=== PATIENT | female | born 1955 | race Caucasian/White ===

== ENCOUNTER 2019-08-23 14:16 | Inpatient (IN) ==
[2019-08-23 14:41] LABS: Hematocrit 38.7 % (37.0-47.0); Hemoglobin 13.1 gm/dL (12.5-16.0); Mean Cell Volume 92.6 fl (78-100); Mean Corpuscular Hemoglobin 31.3 pg (27-31); Mean Corpuscular Hgb Conc 33.9 g/dl (32-36); Mean Platelet Volume 9.2 fl (8-12.5); Neutrophil # 3.3 K/mm3 (1.3-6.0); Neutrophil % 63.9 % (42-75.0); Platelet Count 211 K/mm3 (150-450); Red Blood Count 4.18 M/mm3 (4.2-5.4); White Blood Count 5.2 K/mm3 (4.0-10.5)
[2019-08-23 14:51] LABS: INR 1.07 INR (0.92-1.08); Partial Thrombolplastin Time 25.2 Seconds (24-32); Prothrombin Time (Patient) 10.6 Seconds (9.1-10.7)
[2019-08-23 15:00] LABS: ALT 26 U/L (19-67); AST 60 U/L (0-48); Albumin * 3.3 gm/dl (3.4-5.0); Alkaline Phosphatase * 132 U/L (50-170); Anion Gap 12.5 mmol/L (6.8-13.8); Bilirubin, Total 0.6 mg/dL (0.0-1.1); Blood Urea Nitrogen 24 mg/dL (3-23); Ca. Corrected For Albumin 8.8 mg/dL (8.4-10.2); Calcium * 8.6 mg/dL (7.9-10.9); Carbon Dioxide 26.3 mmol/L (24-32.6); Chloride 108 mmol/L (97-106); Glucose * 93 mg/dL (70-110); Potassium 3.8 mmol/L (3.4-4.6); Sodium 143 mmol/L (132-142); Total Protein 7.5 gm/dL (6.2-8.2); Troponin I Less than 0.017 ng/mL (0.00-0.10)
[2019-08-23] MEDS ORDERED: KETOROLAC TROMETHAMINE 30 MG/ML VIAL IV ONE (15:00)
[2019-08-23] MEDS ORDERED: LIDOCAINE HCL 20 ML UDC PO ONE (15:01)
[2019-08-23] MEDS ORDERED: MAG HYDROX/ALUMINUM HYD/SIMETH 30 ML UDC PO ONE (15:01)
[2019-08-23] MEDS ORDERED: PANTOPRAZOLE SODIUM 40 MG/100 ML PIGGYBACK IV ONE (15:01)
[2019-08-23] MEDS ORDERED: SUCRALFATE 1 G/10 ML UDC PO ONE (15:01)
[2019-08-23 15:02] LABS: Urine Appearance Slightly Cloudy (CLEAR); Urine Color Yellow
[2019-08-23 15:06] LABS: Urine Bilirubin Negative (NEGATIVE)
[2019-08-23 15:07] LABS: Urine Blood Negative /ul (NEGATIVE); Urine Ketone Negative (NEGATIVE); Urine Protein Negative (NEGATIVE); Urine Urobilinogen Normal (NORMAL)
[2019-08-23 15:08] LABS: Urine Nitrite Negative (NEGATIVE)
[2019-08-23 15:10] LABS: Urine Bacteria 4+; Urine RBC None Seen /hpf (0-5)
[2019-08-23 15:28] LABS: Amylase * 731 U/L (25-115)
[2019-08-23 15:44] LABS: Lipase 18948 U/L (73-393)
[2019-08-23] MEDS ORDERED: DIATRIZOATE MEGLUMINE, SODIUM 30 ML BTL PO ONE (17:25)
--- NOTE | 2019-08-23 18:12 | ERNOTE ---
Chest Pain/Cardiac HPI Date of Service: 08/23/19 Chief Complaint: Chest Pain Time Seen by Provider: 08/23/19 19:51 Source: patient, family Exam Limitations: no limitations Immunizations: IMMUNIZATION HX Immunizations Up to Date Yes History of Influenza Vaccine Yes Hx Pneumococcal Vaccination Yes Allergies/Adverse Reactions: Allergies No Known Allergies Allergy (Verified 08/23/19 14:30) Home Medications: HOME MEDICATIONS Calcium Carbonate/Vitamin D3 [Calcium 500-Vit D3 200 Tablet] 4 ea PO DAILY MDD DOSE IS 500MG-125 UNIT TAB 11/22/17 [Last Taken Unknown] Cyanocobalamin (Vitamin B-12) [Vitamin B-12] 1,000 mcg PO DAILY 11/22/17 [Last Taken Unknown] Ferrous Sulfate [Iron] 325 mg PO DAILY 11/22/17 [Last Taken Unknown] Latanoprost [Xalatan] 1 drp EACHEYE HS 11/22/17 [Last Taken Unknown] Midodrine HCl 10 mg PO TID 11/22/17 [Last Taken Unknown] Multivitamins [Multivitamin Gloria] 2 cap PO DAILY 11/22/17 [Last Taken Unknown] chlorpheniramine maleate 4 mg tablet 4 mg PO Q6H PRN 02/21/18 [Last Taken Unknown] albuterol sulfate 90 mcg/actuation aerosol inhaler 2 puff IH Q6H PRN #18 g 10/07/18 [Last Taken Unknown] folic acid 1 mg tablet 1 mg PO DAILY tab 10/07/18 [Last Taken Unknown] methotrexate sodium (PF) 25 mg/mL injection solution 20 mg IM QWEEK #2 ml 01/23/19 [Last Taken Unknown] hydroxychloroquine 200 mg tablet 200 mg PO BID tab 05/20/19 [Last Taken Unknown] alendronate 70 mg tablet 70 mg PO QWEEK #13 tab 07/13/19 [Last Taken Unknown] omeprazole 40 mg capsule,delayed release 40 mg PO DAILY #30 cap 07/13/19 [Last Taken Unknown] sertraline 50 mg tablet 75 mg PO DAILY #45 tab 08/10/19 [Last Taken Unknown] Narrative: patient c/oepigastric pain with radiation into back for several days Timing: constant Severity/Quality: moderate, pressure, sharp Location: substernal, epigastric Chest Pain Radiation: back Activities at Onset: none Modifying Factors - Improves: Present: nothing Modifying Factors - Worsens: Present: nothing Nitro Today/Relief: no nitro taken today Aspirin Treatment Today: no aspirin today Associated Symptoms: Present: denies symptoms Prior Chest Pain/Cardiac Workup: Reports: no prior cardiac workup Prior Treatment: Reports: recently seen Review of Systems - Review of Systems Constitutional: Present: See HPI, weakness, fatigue, malaise EYE: Present: no symptoms reported ENT: Present: no symptoms reported Respiratory: Present: no symptoms reported Cardiology: Present: no symptoms reported Gastrointestinal/Abdominal: Present: See HPI, nausea, vomiting, abdominal pain, eating less, drinking less Genitourinary: Present: no symptoms reported Musculoskeletal: Present: no symptoms reported Skin: Present: no symptoms reported Neurological: Present: no symptoms reported Endocrine: Present: no symptoms reported Hematologic/Lymphatic: Present: no symptoms reported Psych: Present: no symptoms reported Medical History (Last Reviewed 08/23/19 @ 14:30 by Jocelin Ryan RN) Rhinitis, chronic (Acute) Onset Date: Unknown Morbid obesity (Acute) Onset Date: Unknown Glaucoma (Acute) Onset Date: Unknown GERD (gastroesophageal reflux disease) (Acute) Onset Date: Unknown Dupuytrens contracture (Acute) Onset Date: Unknown early, left middle finger, painful Diverticulosis (Acute) Onset Date: Unknown Depression (Acute) Onset Date: Unknown COPD (chronic obstructive pulmonary disease) (Acute) Onset Date: Unknown Constipation (Acute) Onset Date: ~2011 Rheumatoid arthritis (Acute) Onset Date: ~1996 Surgical History: Surgical History (Last Reviewed 08/23/19 @ 14:30 by Jocelin Ryan RN) H/O arthroscopy of right knee Onset Date: ~1996 H/O gastric bypass Onset Date: ~04/2017 History of left hip replacement Onset Date: ~2010 Normal colonoscopy Onset Date: ~2015 S/P wrist surgery Onset Date: ~2008 right Status post left foot surgery Onset Date: ~11/2017 removed arthritic nodules off bottom of foot Status post right foot surgery Onset Date: ~2004 bone spur removal Family History: Family History (Last Reviewed 08/23/19 @ 14:30 by Jocelin Ryan RN) Father Myocardial infarction Mother Pulmonary embolism Social History: (Last Reviewed 08/23/19 @ 14:30 by Jocelin Ryan RN) Social History: adopted: No foster care: No fci: No Marital status: / lives independently: No household members: children caregiver/support person: No current occupational status: disabled Highest education level completed: high school graduate Service: No Tobacco: Smoking Status: Former smoker Alcohol: alcohol intake: never Substance Use: substance use type: does not use Dietary Habits: caffeine: Yes caffeine comment: occasionally Type: coffee, tea Physical Exam - Physical Exam General Appearance: Present: mild distress, anxious Head Exam: Present: normal inspection, no evidence of injury Eye Exam: Normal inspection: bilateral, PERRL: bilateral, EOMI: bilateral Ears, Nose, Throat: Present: normal ENT inspection, normal pharynx Neck: Present: normal inspection, nontender Respiratory: Present: no respiratory distress, normal breath sounds, no accessory muscle use, chest nontender, lungs clear Cardiovascular/Chest: Present: regular rate, rhythm, no murmur, normal peripheral pulses Gastrointestinal/Abdominal: Present: tenderness, abnormal bowel sounds, distended Back Exam: Present: normal inspection, normal range of motion, no CVA tenderness, no vertebral tenderness Extremity Exam: Present: normal inspection, non-tender Neurological Exam: Present: alert, oriented, normal mood/affect, no motor/sensory deficits Skin Exam: Present: normal color, warm/dry Lymphatic Exam: Present: no adenopathy Progress - Date and Time Seen: Date and Time: 08/23/19 19:36 condition unchanged, to admit acute pancreatitis - Results and Orders Patient's Lab Results:: I have reviewed the patient's lab results. - Vital Signs Patient's Vital Signs:: I have reviewed the patient's vital signs. Vital Signs: Vital Signs 08/23/19 14:16 08/23/19 14:48 08/23/19 15:28 Temperature 36.9 C Pulse Rate 80 77 82 Respiratory Rate 14 19 16 Blood Pressure 158/72 H 137/65 147/73 O2 Sat by Pulse Oximetry 97 96 97 08/23/19 16:00 08/23/19 16:40 08/23/19 17:05 Temperature 37.2 C 37.0 C Pulse Rate 75 79 78 Respiratory Rate 11 L 15 Blood Pressure 150/77 H 132/65 131/68 O2 Sat by Pulse Oximetry 98 99 98 08/23/19 17:50 Temperature Pulse Rate 86 Respiratory Rate Blood Pressure 124/55 O2 Sat by Pulse Oximetry 98 - X-Ray X-Ray #1 X-Ray: abdomen Interpretation: Interp. by me - no acute process - CT/Ultrasound CT/Ultrasound Narrative: us pancreas normal ct abdomen and pelvis- acute pancreatitis - Progress/Reassessment Chief Complaint: Chest Pain Progress:: Unchanged - Transfer of Care Expected Disposition: Admit Plan - Plan Plan: to admit Departure Clinical Impression: Acute pancreatitis - Departure Disposition: Short Term Hospital Inpatient Condition: Serious Referrals: Carole Olsen FNP [Primary Care Provider] -
[2019-08-23] MEDS ORDERED: ONDANSETRON HCL 4 MG TABLET PO PRN (19:55)
[2019-08-23] MEDS: NORMAL SALINE 1,000 ML IV PRN (20:31)
[2019-08-23] MEDS ORDERED: KETOROLAC TROMETHAMINE 30 MG/ML VIAL IV PRN (22:20)
[2019-08-24] MEDS: NORMAL SALINE 1,000 ML IV PRN ×3 (04:34→21:00)
--- NOTE | 2019-08-24 08:11 | HP ---
Chief Complaint - Chief Complaint Date of Service: 08/24/19 Time of Service: 08:10 Chief Complaint: Chest pain, abdominal pain, back pain History of Present Illness: Jackelin is a 64 yo female with chest pain, abdominal pain, and back pain that began yesterday and was severe enough that she came to the [facility] ER. She had bloodwork that showed severely elevated lipase at 18,000. Abdominal CT was completed which showed acute pancreatitis. She denies alcohol. She does report eating fatty foods but not severely and not more than usual. She has a gall bladder but no abnormalities noted from CT. She has never had acute pancreatitis before. Medical History (Last Reviewed 08/23/19 @ 21:06 by Sera Mcdonald RN) Rhinitis, chronic (Acute) Onset Date: Unknown Morbid obesity (Acute) Onset Date: Unknown Glaucoma (Acute) Onset Date: Unknown GERD (gastroesophageal reflux disease) (Acute) Onset Date: Unknown Dupuytrens contracture (Acute) Onset Date: Unknown early, left middle finger, painful Diverticulosis (Acute) Onset Date: Unknown Depression (Acute) Onset Date: Unknown COPD (chronic obstructive pulmonary disease) (Acute) Onset Date: Unknown Constipation (Acute) Onset Date: ~2011 Rheumatoid arthritis (Acute) Onset Date: ~1996 Surgical History: Surgical History (Last Reviewed 08/23/19 @ 21:06 by Sera Mcdonald RN) H/O arthroscopy of right knee Onset Date: ~1996 H/O gastric bypass Onset Date: ~04/2017 History of left hip replacement Onset Date: ~2010 Normal colonoscopy Onset Date: ~2015 S/P wrist surgery Onset Date: ~2008 right Status post left foot surgery Onset Date: ~11/2017 removed arthritic nodules off bottom of foot Status post right foot surgery Onset Date: ~2004 bone spur removal Family History: Family History (Last Reviewed 08/23/19 @ 21:06 by Sera Mcdonald RN) Father Myocardial infarction Mother Pulmonary embolism Brother Pancreatic cancer Social History: (Last Reviewed 08/23/19 @ 21:06 by Sera Mcdonald RN) Social History: adopted: No foster care: No halfway: No Marital status: / lives independently: No household members: children caregiver/support person: No current occupational status: disabled Highest education level completed: high school graduate Service: No Tobacco: Smoking Status: Former smoker Alcohol: alcohol intake: never Substance Use: substance use type: does not use Dietary Habits: caffeine: Yes caffeine comment: occasionally Type: coffee, tea Review Of Systems (GEN) - Review of Systems Generalized/Overall Review: Absent: Weakness, Chills, Fever EENTM: Present: No Symptoms Reported Respiratory: Present: No Symptoms Reported Cardiac: Present: Chest Pain. Absent: Edema, Palpitations Abdominal: Present: Nausea, Abdominal Pain. Absent: Vomiting Genitourinary: Present: No Symptoms Reported Musculoskeletal: Present: Joint Pain, Back Pain Neurological: Present: No Symptoms Reported Skin: Present: No Symptoms Reported Immunizations: IMMUNIZATION HX Immunizations Up to Date Yes History of Influenza Vaccine Yes Hx Pneumococcal Vaccination Yes Allergies/Adverse Reactions: Allergies Allergy/AdvReac Type Severity Reaction Status Date / Time No Known Allergies Allergy Verified 08/23/19 14:30 Home Medications: HOME MEDICATIONS Calcium Carbonate/Vitamin D3 [Calcium 500-Vit D3 200 Tablet] 4 ea PO DAILY MDD DOSE IS 500MG-125 UNIT TAB 11/22/17 [Last Taken Unknown] Cyanocobalamin (Vitamin B-12) [Vitamin B-12] 1,000 mcg PO DAILY 11/22/17 [Last Taken Unknown] Ferrous Sulfate [Iron] 325 mg PO DAILY 11/22/17 [Last Taken Unknown] Latanoprost [Xalatan] 1 drp EACHEYE HS 11/22/17 [Last Taken Unknown] Midodrine HCl 10 mg PO TID 11/22/17 [Last Taken Unknown] Multivitamins [Multivitamin Gloria] 2 cap PO DAILY 11/22/17 [Last Taken Unknown] chlorpheniramine maleate 4 mg tablet 4 mg PO Q6H PRN 02/21/18 [Last Taken Unknown] albuterol sulfate 90 mcg/actuation aerosol inhaler 2 puff IH Q6H PRN #18 g 10/07/18 [Last Taken Unknown] folic acid 1 mg tablet 1 mg PO DAILY tab 10/07/18 [Last Taken Unknown] methotrexate sodium (PF) 25 mg/mL injection solution 20 mg IM QWEEK #2 ml 01/23/19 [Last Taken Unknown] hydroxychloroquine 200 mg tablet 200 mg PO BID tab 05/20/19 [Last Taken Unknown] alendronate 70 mg tablet 70 mg PO QWEEK #13 tab 07/13/19 [Last Taken Unknown] omeprazole 40 mg capsule,delayed release 40 mg PO DAILY #30 cap 07/13/19 [Last Taken Unknown] sertraline 50 mg tablet 75 mg PO DAILY #45 tab 08/10/19 [Last Taken Unknown] Exam - Exam Vital Signs: Vital Signs - Last Taken Temp 37.0 C 08/24/19 06:49 Pulse 79 08/24/19 06:49 Resp 12 08/24/19 06:49 BP 115/59 08/24/19 06:49 Pulse Ox 97 08/24/19 06:49 Constitutional: Present: Alert, Oriented x3, Cooperative, No distress ENT Exam: Present: hearing grossly normal Eye Exam: bilateral eye: normal inspection Respiratory: Present: lungs clear, normal breath sounds Cardiovascular/Chest: Present: regular rate, rhythm, no murmur Abdomen: Present: Normal bowel sounds, soft, nondistended, no rebound tenderness, tender Skin Exam: Present: normal color, warm/dry, no cyanosis Appearance: Present: appropriate appearance, appropriate insight Eye contact: Present: cooperative, good eye contact, normal speech Thoughts: Present: normal thought pattern, no apparent hallucination Diagnostic Studies: Abnormal Lab Results 08/23/19 08/23/19 08/23/19 Range/Units 14:34 14:34 14:34 RBC 4.18 L (4.2-5.4) M/mm3 MCH 31.3 H (27-31) pg Monocytes % 11.8 H (0.0-9) % Eosinophils % 3.3 H (0.0-3.0) % Lymphocytes # 1.03 L (1.5-3.5) k/mm3 Sodium 143 H (132-142) mmol/L Plasma Sodium 143 H (130-142) mmol/L Chloride 108 H (97-106) mmol/L BUN 24 H (3-23) mg/dL BUN/Creatinine Ratio 27.0 H (9.0-21.6) AST 60 H (0-48) U/L Albumin 3.3 L (3.4-5.0) gm/dl Amylase 731 H (25-115) U/L Lipase 43223 H (73-393) U/L Ur Leukocyte Esterase (NEGATIVE) /ul Urine WBC (0-5) /hpf Calcium Oxalate Crystal (NONE) /hpf Urine Bacteria (NONE) 08/23/19 Range/Units 14:55 RBC (4.2-5.4) M/mm3 MCH (27-31) pg Monocytes % (0.0-9) % Eosinophils % (0.0-3.0) % Lymphocytes # (1.5-3.5) k/mm3 Sodium (132-142) mmol/L Plasma Sodium (130-142) mmol/L Chloride (97-106) mmol/L BUN (3-23) mg/dL BUN/Creatinine Ratio (9.0-21.6) AST (0-48) U/L Albumin (3.4-5.0) gm/dl Amylase (25-115) U/L Lipase (73-393) U/L Ur Leukocyte Esterase 25 H (NEGATIVE) /ul Urine WBC 5-10 H (0-5) /hpf Calcium Oxalate Crystal Few - 1+ H (NONE) /hpf Urine Bacteria 4+ H (NONE) Microbiology 08/23/19 14:55 Urine Culture - Preliminary Urine,Clean Catch Gram Negative Bacilli Laboratory Results WBC 5.2 K/mm3 (4.0-10.5) 08/23/19 14:34 RBC 4.18 M/mm3 (4.2-5.4) L 08/23/19 14:34 Hgb 13.1 gm/dL (12.5-16.0) 08/23/19 14:34 Hct 38.7 % (37.0-47.0) 08/23/19 14:34 MCV 92.6 fl (78-100) 08/23/19 14:34 MCH 31.3 pg (27-31) H 08/23/19 14:34 MCHC 33.9 g/dl (32-36) 08/23/19 14:34 RDW 13.0 % (11.5-14.0) 08/23/19 14:34 Plt Count 211 K/mm3 (150-450) 08/23/19 14:34 MPV 9.2 fl (8-12.5) 08/23/19 14:34 Immature Gran % (Auto) 0.20 % (0.001-0.429) 08/23/19 14:34 Immature Gran # (Auto) 0.01 K/mm3 (0.000-0.0310) 08/23/19 14:34 Neutrophils % 63.9 % (42-75.0) 08/23/19 14:34 Lymphocytes % 20.0 % (20-51) 08/23/19 14:34 Monocytes % 11.8 % (0.0-9) H 08/23/19 14:34 Eosinophils % 3.3 % (0.0-3.0) H 08/23/19 14:34 Basophils % 0.8 % (0.0-1.0) 08/23/19 14:34 Nucleated RBC % 0.0 k/mm3 (0-1) 08/23/19 14:34 Neutrophils # 3.3 K/mm3 (1.3-6.0) 08/23/19 14:34 Lymphocytes # 1.03 k/mm3 (1.5-3.5) L 08/23/19 14:34 Monocytes # 0.6 k/mm3 (0.0-1.0) 08/23/19 14:34 Eosinophils # 0.2 k/mm3 (0.0-0.7) 08/23/19 14:34 Absolute Basophils 0.0 k/mm3 (0.0-0.1) 08/23/19 14:34 PT 10.6 Seconds (9.1-10.7) 08/23/19 14:34 INR (Anticoag Therapy) 1.07 INR (0.92-1.08) 08/23/19 14:34 PTT ([place]) 25.2 Seconds (24-32) 08/23/19 14:34 Sodium 143 mmol/L (132-142) H 08/23/19 14:34 Plasma Sodium 143 mmol/L (130-142) H 08/23/19 14:34 Potassium 3.8 mmol/L (3.4-4.6) 08/23/19 14:34 Chloride 108 mmol/L (97-106) H 08/23/19 14:34 Carbon Dioxide 26.3 mmol/L (24-32.6) 08/23/19 14:34 Anion Gap 12.5 mmol/L (6.8-13.8) 08/23/19 14:34 BUN 24 mg/dL (3-23) H 08/23/19 14:34 Creatinine 0.89 mg/dL (0.4-1.4) 08/23/19 14:34 Est GFR (Non-Af Amer) 68 mL/min (60-130) 08/23/19 14:34 BUN/Creatinine Ratio 27.0 (9.0-21.6) H 08/23/19 14:34 Random Glucose 93 mg/dL (70-110) 08/23/19 14:34 Calcium 8.6 mg/dL (7.9-10.9) 08/23/19 14:34 Calcium Adj for Albumin 8.8 mg/dL (8.4-10.2) 08/23/19 14:34 Total Bilirubin 0.6 mg/dL (0.0-1.1) 08/23/19 14:34 AST 60 U/L (0-48) H 08/23/19 14:34 ALT 26 U/L (19-67) 08/23/19 14:34 Alkaline Phosphatase 132 U/L (50-170) 08/23/19 14:34 Troponin I Less than 0.017 ng/mL (0.00-0.10) 08/23/19 14:34 Total Protein 7.5 gm/dL (6.2-8.2) 08/23/19 14:34 Albumin 3.3 gm/dl (3.4-5.0) L 08/23/19 14:34 Amylase 731 U/L (25-115) H 08/23/19 14:34 Lipase 61765 U/L (73-393) H 08/23/19 14:34 Urine Color Yellow 08/23/19 14:55 Urine Appearance Slightly cloudy (CLEAR) 08/23/19 14:55 Urine pH 6.0 pH (5.0-7.0) 08/23/19 14:55 Ur Specific [place] 1.030 SP.GR. (1.005-1.010) 08/23/19 14:55 Urine Protein Negative mg/dL (NEGATIVE) 08/23/19 14:55 Urine Glucose (UA) Negative mg/dL (NEGATIVE) 08/23/19 14:55 Urine Ketones Negative mg/dL (NEGATIVE) 08/23/19 14:55 Urine Blood Negative /ul (NEGATIVE) 08/23/19 14:55 Urine Nitrate Negative (NEGATIVE) 08/23/19 14:55 Urine Bilirubin Negative mg/dl (NEGATIVE) 08/23/19 14:55 Urine Urobilinogen Normal EU/dl (NORMAL) 08/23/19 14:55 Ur Leukocyte Esterase 25 /ul (NEGATIVE) H 08/23/19 14:55 Urine RBC None seen /hpf (0-5) 08/23/19 14:55 Urine WBC 5-10 /hpf (0-5) H 08/23/19 14:55 Ur Epithelial Cells None seen /hpf (0-5) 08/23/19 14:55 Calcium Oxalate Crystal Few - 1+ /hpf (NONE) H 08/23/19 14:55 Urine Bacteria 4+ (NONE) H 08/23/19 14:55 Urine Culture Comments Culture to follow 08/23/19 14:55 Assessment/Plan - Narrative Narrative: Jackelin is a 64 yo female with acute pancreatitis of unknown etiology. Pancreatitis verified with lipase of 18,000 and evidence of peripancreatic inflammation on CT. She denies alcohol. Will evaluate lipids, gall bladder, and review medications. Will make NPO and treat with IV fluids and IV pain medication of Toradol for pain control. Expect greater than 2 midnights to correct lipase and improve inflammation and pain, will admit to inpatient status. - Assessment/Plan (1) Acute pancreatitis Problem: Acute Qualifiers: Pancreatitis type: unspecified pancreatitis type Acute pancreatitis complication: no infection or necrosis Qualified Code(s): K85.90 - Acute pancreatitis without necrosis or infection, unspecified
[2019-08-24 09:12] LABS: Hemoglobin 12.3 gm/dL (12.5-16.0); Mean Cell Volume 94.1 fl (78-100); Mean Corpuscular Hemoglobin 31.3 pg (27-31); Mean Corpuscular Hgb Conc 33.2 g/dl (32-36); Mean Platelet Volume 9.5 fl (8-12.5); Neutrophil % 87.4 % (42-75.0); Platelet Count 185 K/mm3 (150-450); Red Blood Count 3.93 M/mm3 (4.2-5.4); Red Cell Distribution Width 13.2 % (11.5-14.0)
[2019-08-24 09:33] LABS: Albumin * 2.7 gm/dl (3.4-5.0); Anion Gap 10.1 mmol/L (6.8-13.8); BUN/Creatinine Ratio 19.1 (9.0-21.6); Bilirubin, Total 0.9 mg/dL (0.0-1.1); Ca. Corrected For Albumin 8.5 mg/dL (8.4-10.2); Calcium * 7.8 mg/dL (7.9-10.9); Carbon Dioxide 25.9 mmol/L (24-32.6); Chol/HDL Risk Ratio 1.9 mg/dL (3.3-4.4); Total Protein 6.5 gm/dL (6.2-8.2)
[2019-08-24] MEDS: SULFAMETHOXAZOLE/TRIMETHOPRIM 1 TAB TABLET PO SCH ×2 (10:23→20:26)
[2019-08-24] MEDS: MIDODRINE HCL 2.5 MG TABLET PO SCH ×3 (10:24→17:40)
[2019-08-24] MEDS: SERTRALINE HCL 50 MG TABLET PO SCH (10:24)
[2019-08-24] MEDS: HYDROXYCHLOROQUINE SULFATE 200 MG TABLET PO SCH ×2 (10:30→20:27)
[2019-08-24] MEDS ORDERED: LATANOPROST 25 DROP BTL EACHEYE SCH (21:00)
[2019-08-25] MEDS: NORMAL SALINE 1,000 ML IV PRN ×2 (06:29→13:10)
[2019-08-25] MEDS: HYDROXYCHLOROQUINE SULFATE 200 MG TABLET PO SCH (08:35)
[2019-08-25] MEDS: MIDODRINE HCL 2.5 MG TABLET PO SCH ×3 (08:35→17:00)
[2019-08-25] MEDS: SERTRALINE HCL 50 MG TABLET PO SCH (08:36)
[2019-08-25 08:56] LABS: Hematocrit 34.6 % (37.0-47.0); Hemoglobin 11.6 gm/dL (12.5-16.0); Mean Cell Volume 94.3 fl (78-100); Mean Corpuscular Hemoglobin 31.6 pg (27-31); Mean Corpuscular Hgb Conc 33.5 g/dl (32-36); Mean Platelet Volume 9.6 fl (8-12.5); Platelet Count 172 K/mm3 (150-450); Red Blood Count 3.67 M/mm3 (4.2-5.4); Red Cell Distribution Width 13.1 % (11.5-14.0); White Blood Count 8.8 K/mm3 (4.0-10.5)
[2019-08-25 08:59] LABS: Total Cells Counted 100
[2019-08-25] MEDS ORDERED: CIPROFLOXACIN HCL 500 MG TABLET PO SCH (09:00)
[2019-08-25 09:04] LABS: Albumin * 2.6 gm/dl (3.4-5.0); Anion Gap 13.6 mmol/L (6.8-13.8); BUN/Creatinine Ratio 13.8 (9.0-21.6); Bilirubin, Total 0.7 mg/dL (0.0-1.1); Ca. Corrected For Albumin 8.9 mg/dL (8.4-10.2); Calcium * 8.1 mg/dL (7.9-10.9); Potassium 3.6 mmol/L (3.4-4.6); Total Protein 6.1 gm/dL (6.2-8.2)
[2019-08-25 09:44] LABS: Band 1 % (0-2.0); Eosinophil 1 % (0-3); Lymphocyte 9 % (20-51); Monocyte 1 % (0-9); Neutrophil 88 % (42-75); Neutrophil # 7.7 K/mm3 (1.3-6.0)
[2019-08-25 09:46] LABS: Hypersegmented Polys Trace; Platelet Estimate Normal (NORMAL); Polychromasia Trace
--- NOTE | 2019-08-25 17:15 | DS ---
(1) Acute pancreatitis Problem: Resolved Qualifiers: Pancreatitis type: unspecified pancreatitis type Acute pancreatitis complication: no infection or necrosis Qualified Code(s): K85.90 - Acute pancreatitis without necrosis or infection, unspecified Date of Discharge:: 08/25/19 Hospital Course: Jackelin is a 64 yo female admitted for acute pancreatitis. Her lipase was 18,000. She was made NPO and treated with toradol and IV fluids. Etiology for pancreatitis is unknown. She denies alcohol, there was gall bladder sludge but no stones or ductal dilation. Her triglycerides were normal. Lipase trended down and her pain resolved. Her diet was advanced to clears and when that was tolerated to low fat diet. She tolerated this and had no pain. She will be discharged to home. She did have evidence of a UTI on UA and a culture showed E. Coli. She was initially started on Bactrim but culture showed resistance and she was changed to ciprofloxacin. She will be discharged to home and continued on ci profloxacin 500mg BID x 5 days. Procedures Performed: none Results and Findings: Lab Pending Results 08/23/19 14:34: WBC 5.2, RBC 4.18 L, Hgb 13.1, Hct 38.7, MCV 92.6, MCH 31.3 H, MCHC 33.9, RDW 13.0, Plt Count 211, MPV 9.2, Immature Gran % (Auto) 0.20, Immature Gran # (Auto) 0.01, Neutrophils % 63.9, Lymphocytes % 20.0, Monocytes % 11.8 H, Eosinophils % 3.3 H, Basophils % 0.8, Nucleated RBC % 0.0, Neutrophils # 3.3, Lymphocytes # 1.03 L, Monocytes # 0.6, Eosinophils # 0.2, Absolute Basophils 0.0 08/23/19 14:34: PT 10.6, INR (Anticoag Therapy) 1.07, PTT ([place]) 25.2 08/23/19 14:34: Sodium 143 H, Plasma Sodium 143 H, Potassium 3.8, Chloride 108 H, Carbon Dioxide 26.3, Anion Gap 12.5, BUN 24 H, Creatinine 0.89, Est GFR (Non- Af Amer) 68, BUN/Creatinine Ratio 27.0 H, Random Glucose 93, Calcium 8.6, Calcium Adj for Albumin 8.8, Total Bilirubin 0.6, AST 60 H, ALT 26, Alkaline Phosphatase 132, Troponin I Less than 0.017, Total Protein 7.5, Albumin 3.3 L 08/23/19 14:34: Amylase 731 H, Lipase 83994 H 08/23/19 14:55: Urine Color Yellow, Urine Appearance Slightly cloudy, Urine pH 6.0, Ur Specific [place] 1.030, Urine Protein Negative, Urine Glucose (UA) Negative, Urine Ketones Negative, Urine Blood Negative, Urine Nitrate Negative, Urine Bilirubin Negative, Urine Urobilinogen Normal, Ur Leukocyte Esterase 25 H, Urine RBC None seen, Urine WBC 5-10 H, Ur Epithelial Cells None seen, Calcium Oxalate Crystal Few - 1+ H, Urine Bacteria 4+ H, Urine Culture Comments Culture to follow 08/24/19 09:06: WBC 16.0 H D, RBC 3.93 L, Hgb 12.3 L, Hct 37.0, MCV 94.1, MCH 31.3 H, MCHC 33.2, RDW 13.2, Plt Count 185, MPV 9.5, Immature Gran % (Auto) 0.60 H, Immature Gran # (Auto) 0.10 H, Neutrophils % 87.4 H, Lymphocytes % 5.3 L, Monocytes % 5.5, Eosinophils % 0.9, Basophils % 0.3, Nucleated RBC % 0.0, Neutrophils # 14.0 H, Lymphocytes # 0.85 L, Monocytes # 0.9, Eosinophils # 0.1, Absolute Basophils 0.0 08/24/19 09:06: Sodium 139, Plasma Sodium 139, Potassium 4.0, Chloride 107 H, Carbon Dioxide 25.9, Anion Gap 10.1, BUN 18, Creatinine 0.94, Est GFR (Non-Af Amer) 64, BUN/Creatinine Ratio 19.1, Random Glucose 95, Calcium 7.8 L, Calcium Adj for Albumin 8.5, Total Bilirubin 0.9, AST 250 H, ALT 193 H, Alkaline Phosphatase 184 H, Total Protein 6.5, Albumin 2.7 L, Triglycerides 32, Cholesterol 98, LDL Cholesterol 41 L, VLDL Cholesterol 6, HDL Cholesterol 51, Cholesterol/HDL Ratio 1.9 L, Lipase 6472 H 08/25/19 08:48: WBC 8.8 D, RBC 3.67 L, Hgb 11.6 L, Hct 34.6 L, MCV 94.3, MCH 31.6 H, MCHC 33.5, RDW 13.1, Plt Count 172, MPV 9.6, Neutrophils % (Manual) 88 H, Band Neuts % (Manual) 1, Lymphocytes % (Manual) 9 L, Monocytes % (Manual) 1, Eosinophils % (Manual) 1, Neutrophils # (Manual) 7.7 H, Lymphocytes # (Manual) 0.8 L, Monocytes # (Manual) 0.1, Eosinophils # (Manual) 0.1, Hypersegmented Polys Trace, Platelet Estimate Normal, Polychromasia Trace 08/25/19 08:48: Sodium 136, Plasma Sodium 136, Potassium 3.6, Chloride 108 H, Carbon Dioxide 18.0 L, Anion Gap 13.6, BUN 11, Creatinine 0.80, Est GFR (Non-Af Amer) 77 D, BUN/Creatinine Ratio 13.8, Random Glucose 110, Calcium 8.1, Calcium Adj for Albumin 8.9, Total Bilirubin 0.7, AST 88 H, ALT 110 H, Alkaline Phosphatase 154, Total Protein 6.1 L, Albumin 2.6 L, Lipase 1556 H Discharge Location: Home Disposition: Home self-care Condition: Good Discharge Activity: Activity as tolerated Discharge Diet: Low fat/chol Referrals: Carole Olsen FNP [Primary Care Provider] - One Week Problem Oriented Discharge Instructions to Patient/Family: Acute Pancreatitis, [id number], Urinary Tract Infection, Adult, [id number] Prescriptions (Any new or edited meds): Ciprofloxacin HCl [Cipro] 500 mg PO BID #10 tab Transmission Status: Pending to [facility] - [place], [place] Complete Home Medications List: Complete Home Medication List: Calcium Carbonate/Vitamin D3 [Calcium 500-Vit D3 200 Tablet] 4 ea PO DAILY MDD DOSE IS 500MG-125 UNIT TAB 11/22/17 Cyanocobalamin (Vitamin B-12) [Vitamin B-12] 1,000 mcg PO DAILY 11/22/17 Ferrous Sulfate [Iron] 325 mg PO DAILY 11/22/17 Latanoprost [Xalatan] 1 drp EACHEYE 11/22/17 Midodrine HCl 10 mg PO TID 11/22/17 Multivitamins [Multivitamin Gloria] 2 cap PO DAILY 11/22/17 chlorpheniramine maleate 4 mg tablet 4 mg PO Q6H PRN 02/21/18 albuterol sulfate 90 mcg/actuation aerosol inhaler 2 puff IH Q6H PRN #18 g 10/07/18 folic acid 1 mg tablet 1 mg PO DAILY tab 10/07/18 methotrexate sodium (PF) 25 mg/mL injection solution 20 mg IM QWEEK #2 ml 01/23/19 hydroxychloroquine 200 mg tablet 200 mg PO BID tab 05/20/19 alendronate 70 mg tablet 70 mg PO QWEEK #13 tab 07/13/19 omeprazole 40 mg capsule,delayed release 40 mg PO DAILY #30 cap 07/13/19 sertraline 50 mg tablet 75 mg PO DAILY #45 tab 08/10/19 Ciprofloxacin HCl [Cipro] 500 mg PO BID #10 tab 08/25/19
[2019-08-25 18:03] VITALS: BP 122/60
== END 2019-08-25 18:02 | disposition home or self-care (01) | DRG 439 ==
LOC: ER 14:16 → MS 19:46
PROVIDERS: ADMIT Family Medicine; ATTEND Family Medicine
DX: N39.0 Urinary tract infection, site not specified; K85.90 Acute pancreatitis without necrosis or infection, unspecified; J44.9 Chronic obstructive pulmonary disease, unspecified; Z87.891 Personal history of nicotine dependence; B96.20 Unspecified Escherichia coli [E. coli] as the cause of diseases classified elsewhere; Z90.3 Acquired absence of stomach [part of]; M06.9 Rheumatoid arthritis, unspecified
CPT/HCPCS: 36415; 71020; 71046; 74177; 76705; 80053; 80061; 81001; 82150; 83690; 84484; 85007; 85025; 85610; 85730; 87086; 93005; 96365; 99284; 99285; Q9963; Q9967